=== PATIENT | female | born 1980 | race African-American/Black ===

== ENCOUNTER → 2022-07-15 | Outpatient (CLI) | payer OTHER ==
[~2022-07-15] MED LIST: Cleocin HCl300 MG PO
== END | disposition home or self-care (01) ==
LOC: LAB SHORT 17:50
DX: L08.9 Local infection of the skin and subcutaneous tissue, unspecified (principal)
CPT/HCPCS: 87070; 87077; 87147; 87186; 87205

== ENCOUNTER 2022-09-22 20:34 | Emergency (ER) | payer OTHER ==
[~2022-09-22] VITALS: Ht 157.5 cm; Wt 86.6 kg
[2022-09-22] MEDS ORDERED: Bactrim Ds Tab1 EACH PO (23:10)
== END 2022-09-22 23:31 | disposition home or self-care (01) ==
LOC: ER 20:34
DX: I10 Essential (primary) hypertension (principal); R51.9 Headache, unspecified
CPT/HCPCS: 99283; A9270